=== PATIENT | female | born 1980 | race Hispanic/Latino ===

== ENCOUNTER → 2017-04-09 | Outpatient (CLI) | payer SELFPAY ==
[~2017-04-09] MED LIST: ACHD5005 PO; EST.1TD TD; IBP600T1 PO; METR500T PO
== END ==
LOC: RAD 12:28
PROVIDERS: ATTEND Nurse Practitioner Family
DX: N92.6 Irregular menstruation, unspecified (principal); Z53.29 Procedure and treatment not carried out because of patient's decision for other reasons

== ENCOUNTER 2021-01-12 20:25 | Outpatient (CLI) | payer OTHER ==
[~2021-01-12] VITALS: Ht 151.5 cm; Wt 77.1 kg
[2021-01-12 20:57] VITALS: BP 127/78
[2021-01-12 21:16] VITALS: BP 127/78
[2021-01-12 21:34] LABS: BILIRUBIN,URINE NEGATIVE (NEGATIVE); CLARITY,URINE CLEAR; COLOR,URINE YELLOW; GLUCOSE, URINE (UA) NEGATIVE (NEGATIVE); KETONES,URINE NEGATIVE (NEGATIVE); LEUKOCYTE ESTERASE ,URINE 3+ (NEGATIVE); NITRITE,URINE NEGATIVE (NEGATIVE); PH,URINE 6.5 (5-9); PROTEIN,URINE 1+ (NEGATIVE)
[2021-01-12 21:42] LABS: BACTERIA,URINE LARGE /HPF; SQUAMOUS EPITHELIAL CELL,UR 25-50 /HPF; WBC,URINE 25-50 /HPF
[2021-01-12 22:00] VITALS: BP 127/87
[2021-01-12] MEDS ORDERED: LACTATED RINGERS 1,000 ML IV ONE (22:07)
[2021-01-12] MEDS ORDERED: cefTRIAXone 1,000 MG in WATER (STERILE) FOR INJECTION 10 ML IV ONE (22:15)
[2021-01-12] MEDS ORDERED: LACTATED RINGERS 1,000 ML IV SCH ×2 (22:15→23:45)
[2021-01-13 06:44] VITALS: BP 111/66
[2021-01-14] MEDS ORDERED: OXYC1TAB12 PO (05:05)
[2021-01-14] MEDS ORDERED: DOCU-143 PO (05:05)
[2021-01-14] MEDS ORDERED: IBUP-1780 PO (05:05)
--- NOTE | 2021-01-14 08:05 | Physician Query-Final Dx ---
Clinic Account Progress/Dx Physician Query: Please give diagnosis Please include # weeks gestation Date of Service Jan 12, 2021 at 20:25 VISHNU VENTURA Jan 14, 2021 08:05
== END 2021-01-13 09:05 | disposition home or self-care (01) ==
LOC: LDRP 20:25 → WSo 20:25
PROVIDERS: ATTEND Family Medicine
DX: O62.9 Abnormality of forces of labor, unspecified (principal); Z3A.37 37 weeks gestation of pregnancy
CPT/HCPCS: 81000; 87088

== ENCOUNTER 2021-01-13 21:02 | Inpatient (IN) | payer OTHER ==
[~2021-01-13] VITALS: Ht 154.9 cm; Wt 77.1 kg
[2021-01-13 21:11] VITALS: BP 135/76
[2021-01-13] MEDS ORDERED: LACTATED RINGERS 1,000 ML IV ONE (21:29)
[2021-01-13 21:56] VITALS: BP 135/76
[2021-01-13] MEDS ORDERED: LACTATED RINGERS 1,000 ML IV SCH ×2 (22:00→23:30)
[2021-01-13 22:18] LABS: BILIRUBIN,URINE NEGATIVE (NEGATIVE); CLARITY,URINE CLEAR; COLOR,URINE YELLOW; GLUCOSE, URINE (UA) NEGATIVE (NEGATIVE); KETONES,URINE NEGATIVE (NEGATIVE); LEUKOCYTE ESTERASE ,URINE 1+ (NEGATIVE); NITRITE,URINE NEGATIVE (NEGATIVE); PH,URINE 6.5 (5-9); PROTEIN,URINE TRACE (NEGATIVE)
[2021-01-13 22:24] LABS: BACTERIA,URINE FEW /HPF
[2021-01-13] MEDS ORDERED: fentaNYL INJ 100 MCG/2 ML AMP IVP PRN (23:30)
[2021-01-13 23:40] VITALS: BP 106/65
[2021-01-14] VITALS (13 sets, daily range): BP systolic 87–132; BP diastolic 9–78
[2021-01-14] MEDS ORDERED: CITRIC ACID/SOB CIT (BICITRA) 30 ML UDC ONE (04:33)
[2021-01-14] MEDS ORDERED: FAMOTIDINE 20MG/2ML IV (PEPCID) ONE (04:34)
[2021-01-14] MEDS ORDERED: CATHETER FLUSH 10 ML SYR IV PRN (04:45)
[2021-01-14] MEDS ORDERED: LACTATED RINGERS 1,000 ML IV PRN ×2 (04:45)
[2021-01-14] MEDS ORDERED: METOCLOPRAMIDE INJ 10 MG/2 ML (REGLAN) IV ONE (04:45)
[2021-01-14] MEDS ORDERED: CITRIC ACID/SOB CIT (BICITRA) 30 ML UDC PO ONE (04:45)
--- NOTE | 2021-01-14 04:51 | History & Physical-OB ---
OB - Chief Complaint & HPI Date/Time Date of Admission: Date of Admission: 01/14/21 Time Seen by a Provider: 00:00 Chief Complaint/History OB-Reason for Admission/Chief: Section Hx : 3 Hx Para: 1 Expected Date of Delivery: Jan 27, 2021 Gestational Age in Weeks: 38 Gestational Age in Days: 0 Indication for : other (onset of labor with previous ) Other reason for admission: This is a 40yo at 38wk, pt of Dr. Torres, who presents with contractions. Pt was seen the day prior w/ similar complaints and was noted to be 1.5cm dilated, contractions resolved with IVF and patient was discharged. She reports that she began having contractions again and returned to L&D and was noted to have contractions q5-6 min, cervix was 2cm and was treated with IVF and observed to see if contraction/labor continued. Patient has had 1 previous for failure to progress and was scheduled for consultation with Dr. Hendricks next week for the possibility of vs repeat . Pt began having increase in discomfort and was checked an found to be 4cm dilated. Pt is GBS positive. Allergies and Home Medications Allergies Coded Allergies: No Known Drug Allergies (Unverified , 12/15/10) Home Medications No Active Prescriptions or Reported Meds Patient Home Medication List Home Medication List Reviewed: Yes OB - History Hx of Present Care: Yes Ultrasounds: Normal mid trimester US Obstetrical Complications: None Medical Complications: None Information Maternal Gestational Diabetes: No Hemorrhage: No Obstetrical History Hx : 3 Hx Para: 1 Hx Termination: No Hx Total # of Abortions (Spona: 1 Hx Multiple Gestation: No Hx Ectopic : No Hx Stillbirth: No Hx Complication: No Hx Induced Hypertens: No Hx Maternal Gestational Diabet: No Hx Hemorrhage: No Delivery History Hx Dystocia: No Hx Large For Gestational Age I: No Hx Small for Gestational Age I: No Hx Section: No Hx Vaginal Delivery Post C-Sec: No Hx Blood Disorders: No Patient Past Medical History PSH: x1 Social History/Family History Alcohol Use: Denies Use Recreational Drug Use: No 2nd Hand Smoke Exposure: No Immunizations Tetanus Booster (TDap): Less than 5yrs (11/29/20) Rubella: not immune RPR/VDRL: Negative GBS Status: Positive HBsAG: Negative OB - Admission Exam Physical Exam Vitals: Vital Signs 01/13/21 01/13/21 21:56 23:40 Temp 36.7 Pulse 78 Resp 18 B/P (MAP) 106/65 (79) Pulse Ox 99 O2 Delivery Room Air Cervical Dilatation: 4cm Effacement: 100% Membranes: Intact Labs Laboratory Tests Test 01/13/21 22:10 Range/Units Urine Color YELLOW Urine Clarity CLEAR Urine pH 6.5 5-9 Urine Specific [place] 1.010 L 1.016-1.022 Urine Protein TRACE H NEGATIVE Urine Glucose (UA) NEGATIVE NEGATIVE Urine Ketones NEGATIVE NEGATIVE Urine Nitrite NEGATIVE NEGATIVE Urine Bilirubin NEGATIVE NEGATIVE Urine Urobilinogen 1.0 < = 1.0 MG/DL Urine Leukocyte Esterase 1+ H NEGATIVE Urine RBC (Auto) 1+ H NEGATIVE Urine RBC NONE /HPF Urine WBC 5-10 H /HPF Urine Squamous Epithelial Cells 10-25 H /HPF Urine Renal Epithelial Cells NONE /HPF Urine Crystals NONE /LPF Urine Bacteria FEW H /HPF Urine Casts NONE /LPF Urine Mucus NEGATIVE /LPF Urine Culture Indicated YES OB - Assessment/Plan/Diagnosis Assessment Assessment: active labor, section (previous), group B positive strep Admission Dx see assessment Admission Status: Inpatient Order (span 2 midnights) Reason for Inpatient Admission: repeat Plan Plan: Section (Dr. Goetz consulted) MILVIA FISHMAN DO Jan 14, 2021 04:51
[2021-01-14] MEDS ORDERED: ceFAZolin 2 GM IV Premixed 50 ML ONE (04:52)
[2021-01-14] MEDS ORDERED: metroNIDAZOLE 500MG/100ML IVPB 0 ML ONE (04:52)
[2021-01-14] MEDS ORDERED: ceFAZolin 2 GM IV Premixed 50 ML IV ONE (05:00)
[2021-01-14] MEDS ORDERED: metroNIDAZOLE 500MG/100ML IVPB 100 ML IV ONE ×2 (05:00)
[2021-01-14] MEDS ORDERED: ceFAZolin INJECTION 2,000 MG in WATER (STERILE) FOR INJECTION 10 ML IV ONE (05:00)
[2021-01-14] MEDS ORDERED: OXYC1TAB12 PO (05:05)
[2021-01-14] MEDS ORDERED: IBUP-1780 PO (05:05)
[2021-01-14] MEDS ORDERED: DOCU-143 PO (05:05)
--- NOTE | 2021-01-14 05:08 | Discharge Inst-Surgical ---
Discharge Inst-Surgical Depart Medication/Instructions New, Converted or Re-Newed RX: RX on Chart Consults/Follow Up Patient Instructions: As directed Orders & Referrals Follow Up Appt: RTC 1 week for incision check With Dr. Mitchell Call to make follow up appt. for patient in [address] Rodriguez Wound Care: Remove derick, apply benzoin and steri strips. Activity Per routine post instructions. Please call in RX to patient pharmacy. Diet as tolerated Patient may shower or tub bathe as desired. Continue home meds Diet Discharge Diet: No Restrictions NATHAN MITCHELL MD Jan 14, 2021 05:08
[2021-01-14 05:22] LABS: BASOPHILS % (AUTO) 0 % (0-10); EOSINOPHILS # (AUTO) 0.3 10^3/uL (0.0-0.3); EOSINOPHILS % (AUTO) 4 % (0-10); HEMATOCRIT 34 % (35-52); HEMOGLOBIN 10.8 g/dL (11.5-16.0); LYMPHOCYTES # (AUTO) 1.4 10^3/uL (1.0-4.0); LYMPHOCYTES % (AUTO) 20 % (12-44); MEAN CORPUSCULAR HEMOGLOBIN 26 pg (25-34); MEAN CORPUSCULAR HGB CONC 32 g/dL (32-36); MEAN CORPUSCULAR VOLUME 81 fL (80-99); MONOCYTES # (AUTO) 0.5 10^3/uL (0.0-1.0); MONOCYTES % (AUTO) 7 % (0-12); NEUTROPHILS # (AUTO) 4.7 10^3/uL (1.8-7.8); NEUTROPHILS % (AUTO) 68 % (42-75); PLATELET COUNT 176 10^3/uL (130-400)
[2021-01-14] MEDS ORDERED: fentaNYL INJ 100 MCG/2 ML AMP ONE (05:25)
[2021-01-14] MEDS ORDERED: OXYTOCIN PRE-MIX DRIP 500 ML IV ONE (07:20)
[2021-01-14] MEDS: OXYTOCIN PRE-MIX DRIP 500 ML IV SCH ×2 (07:26→11:40)
[2021-01-14] MEDS ORDERED: MEASLES,MUMPS,RUBELLA 1 EA INJ SC ONE (07:30)
[2021-01-14] MEDS ORDERED: fentaNYL INJ 100 MCG/2 ML AMP IVP PRN (07:30)
[2021-01-14] MEDS ORDERED: TETANUS,DIPTH,PERTUSS P/F (BOOSTRIX) 0.5 ML VIAL IM ONE (07:30)
[2021-01-14] MEDS ORDERED: ONDANSETRON 4 MG/2 ML (SDV) Z0FRAN IVP PRN (07:30)
[2021-01-14] MEDS ORDERED: D5 LR IV SOLUTION 1,000 ML IV SCH (07:30)
--- NOTE | 2021-01-14 08:16 | OPERATIVE REPORT ---
DATE OF SERVICE: 01/14/2021 PREOPERATIVE DIAGNOSIS: A 38-week in labor with previous . POSTOPERATIVE DIAGNOSIS: A 38-week in labor with previous . OPERATIVE PROCEDURE: Repeat low transverse delivery of a viable female with Apgars of 8 and 9 at 1 and 5 minutes respectively, weight of 8 pounds and 13 ounces. Cord blood pH of 7.3 and a time of 05:54. OPERATIVE DESCRIPTION: With the patient in the supine position under satisfactory spinal analgesia, the patient was prepped and draped in the usual fashion for abdominal surgery. Purcell catheter was placed in the urinary bladder. A repeat Pfannenstiel incision was made through the skin with scalpel, the patient's abdomen entered in the usual manner. Bladder retractor placed into position and clean scalpel used to make a 4 cm hysterotomy incision transversely across the lower uterine segment. Kaur forceps were applied to facilitate the delivery of a vigorous viable female infant. Infant had Apgars and stats as noted above. The infant was bulb suctioned on delivery of the head and again on completion of delivery. The umbilical cord was doubly clamped and cut and the passed to the pediatric nurse in attendance for delivery. Cord bloods were obtained. The placenta delivered spontaneously Siddiqui. It was normal with a 3-vessel cord. The uterus was exteriorized and interior wiped clean with a wet laparotomy sponge. Uterine incision closed with a running locked suture of 2-0 Vicryl. Hemostasis was complete. The uterus was returned to abdominal cavity. All blood clot and debris removed from the abdominal cavity. With sponge and needle counts correct, hemostasis assured. Anterior parietal peritoneum was closed with running suture of 2-0 Vicryl. Rectus muscles were closed with that suture as well. The rectus fascia was closed with 2-0 Vicryl, subcutaneous tissue was closed with 2-0 Vicryl and the skin was stapled. Sponge and needle counts were correct on completion of the procedure. Blood loss was around 350 mL. The patient tolerated the procedure well and remained in the LDR for recovery. The baby had remained at bedside with mom. Job ID: [id number] DocumentID: [id number] Dictated Date: 01/14/2021 06:17:13 Relocation Director Date: 01/14/2021 08:15:22 Dictated By: NATHAN MONTES MD
[2021-01-14] MEDS ORDERED: DOCUSATE SODIUM 100 MG (COLACE) CAP PO SCH (09:00)
[2021-01-14] MEDS: DOCUSATE SODIUM 100 MG (COLACE) CAP PO SCH ×2 (09:00→19:55)
[2021-01-14] MEDS: oxyCODONE/APAP 10/325MG (PERCOCET 10) TABLET PO PRN ×2 (10:45→15:40)
[2021-01-14] MEDS: KETOROLAC 30 MG/ML VIAL IVP SCH ×2 (14:45→19:55)
[2021-01-15] MEDS: KETOROLAC 30 MG/ML VIAL IVP SCH (02:23)
[2021-01-15] MEDS: oxyCODONE/APAP 10/325MG (PERCOCET 10) TABLET PO PRN (02:24)
[2021-01-15 04:45] VITALS: BP 105/56
--- NOTE | 2021-01-15 08:23 | Progress Note ---
Standard Progress Note Progress Notes/Assess & Plan Date Seen by a Provider: Jan 15, 2021 Time Seen by a Provider: 08:00 Progress/Assessment & Plan This patient is without complaint. She is ambulating, voiding, tolerating oral intake well and has good pain control. Patient denies headache, denies shortness of breath, denies nausea vomiting, and denies chest pain. Vital Signs Date Time Temp Pulse Resp B/P (MAP) Pulse Ox O2 Delivery O2 Flow Rate FiO2 01/15/21 04:45 36.8 80 18 105/56 (72) 94 Room Air 01/14/21 23:54 Room Air 01/14/21 23:50 36.4 76 18 107/59 (75) 94 Room Air 01/14/21 19:55 36.4 77 18 98/55 (69) 93 Room Air 01/14/21 14:42 37.0 67 18 116/55 (75) 95 Room Air I & O 01/15/21 07:00 Intake Total 4700 ml Output Total 1500 ml Balance 3200 ml Vital signs are stable. Patient is afebrile. Fundus is firm below the umbilicus and nontender. The surgical incision is clean dry and intact Extremities show no clubbing or cyanosis. There is no Homans' sign. Assessment and plan Postoperative day #1 status post repeat delivery doing well. Plan is for routine convalescent care today and consider discharge home tomorrow NATHAN MONTES MD Jan 15, 2021 08:23
[2021-01-15] MEDS ORDERED: IBUPROFEN 800 MG (MOTRIN) TAB PO ONE (08:42)
[2021-01-15 09:24] VITALS: BP 108/63
[2021-01-15] MEDS: IBUPROFEN 800 MG (MOTRIN) TAB PO SCH ×3 (09:28→21:10)
[2021-01-15] MEDS: DOCUSATE SODIUM 100 MG (COLACE) CAP PO SCH ×2 (09:28→21:10)
[2021-01-15 15:10] VITALS: BP 107/58
[2021-01-15 21:00] VITALS: BP 115/66
[2021-01-16] MEDS: IBUPROFEN 800 MG (MOTRIN) TAB PO SCH ×3 (02:21→14:54)
[2021-01-16 02:41] VITALS: BP 111/62
--- NOTE | 2021-01-16 07:49 | Progress Note ---
Standard Progress Note Progress Notes/Assess & Plan Date Seen by a Provider: Jan 16, 2021 Time Seen by a Provider: 07:48 Progress/Assessment & Plan This patient is without complaint. She is ambulating, voiding, tolerating oral intake well and has good pain control. Patient denies headache, denies shortness of breath, denies nausea vomiting, and denies chest pain. Vital Signs Date Time Temp Pulse Resp B/P (MAP) Pulse Ox O2 Delivery O2 Flow Rate FiO2 01/15/21 04:45 36.8 80 18 105/56 (72) 94 Room Air 01/14/21 23:54 Room Air 01/14/21 23:50 36.4 76 18 107/59 (75) 94 Room Air 01/14/21 19:55 36.4 77 18 98/55 (69) 93 Room Air 01/14/21 14:42 37.0 67 18 116/55 (75) 95 Room Air I & O 01/15/21 07:00 Intake Total 4700 ml Output Total 1500 ml Balance 3200 ml Vital signs are stable. Patient is afebrile. Fundus is firm below the umbilicus and nontender. The surgical incision is clean dry and intact Extremities show no clubbing or cyanosis. There is no Homans' sign. Assessment and plan Postoperative day #1 status post repeat delivery doing well. Plan is for routine convalescent care today and consider discharge home tomorrow January 16, 2021 This patient is without complaint. She is ambulating, voiding, tolerating oral intake well and has good pain control. Patient is requesting discharge home. Vital Signs Date Time Temp Pulse Resp B/P (MAP) Pulse Ox O2 Delivery O2 Flow Rate FiO2 01/16/21 02:41 36.7 71 18 111/62 (78) 94 Room Air 01/15/21 21:00 36.7 79 18 115/66 (82) 94 Room Air 01/15/21 15:10 36.5 88 18 107/58 (74) 95 Room Air 01/15/21 09:24 36.8 70 18 108/63 (78) 95 Room Air Vital signs are stable. Patient is afebrile. Fundus is firm below the umbilicus and nontender. The surgical incision is clean dry and intact. Extremities show no clubbing or cyanosis. There is no Homans' sign. Assessment and plan Postoperative day #2 status post repeat delivery doing well. Plan is for discharge home with follow-up in clinic Final Diagnosis 38-week repeat delivery NATHAN MONTES MD Jan 16, 2021 07:49
[2021-01-16 08:20] VITALS: BP 111/69
[2021-01-16] MEDS: DOCUSATE SODIUM 100 MG (COLACE) CAP PO SCH (08:31)
[2021-01-16] MEDS: oxyCODONE/APAP 10/325MG (PERCOCET 10) TABLET PO PRN (14:55)
[2021-01-19] MEDS ORDERED: IBUPROFEN 800 MG (MOTRIN) TAB PO SCH (12:00)
== END 2021-01-16 15:25 | disposition home or self-care (01) | DRG 788 ==
LOC: WSo 21:02 → LDRP 21:04 → WSo 01-14 04:38 → LDRP 01-14 04:39
PROVIDERS: ADMIT Obstetrics & Gynecology; ATTEND Obstetrics & Gynecology
PROC: 10D00Z1 Extraction of Products of Conception, Low, Open Approach (ICD-10-PCS; principal; 2021-01-14 05:35)
DX: O34.211 Maternal care for low transverse scar from previous cesarean delivery (principal); O99.824 Streptococcus B carrier state complicating childbirth; Z3A.38 38 weeks gestation of pregnancy; Z37.0 Single live birth; Z23 Encounter for immunization
CPT/HCPCS: 36415; 81000; 85025; 85027; 86850; 86900; 86901; 87088; 90707; 94664; 99212

== ENCOUNTER → 2023-04-28 | Outpatient (CLI) | payer SELFPAY ==
[~2023-04-28] MED LIST changes: +DOCU-143 PO; +DOCU100C37 PO; +IBUP-1780 PO; +IBUP-844 PO; +OXYC1TAB12 PO
== END | disposition home or self-care (01) ==
LOC: PREOP 11:06
PROVIDERS: ATTEND Obstetrics & Gynecology
DX: Z01.818 Encounter for other preprocedural examination (principal)

== ENCOUNTER 2023-04-29 11:18 | Inpatient (IN) | payer OTHER ==
[~2023-04-29] VITALS: Ht 152.4 cm; Wt 71.8 kg
[2023-04-29] VITALS (9 sets, daily range): BP systolic 97–117; BP diastolic 60–76
[~2023-04-29 11:18] MED LIST changes: -DOCU100C37 PO; -IBUP-844 PO
[2023-04-29] MEDS: LACTATED RINGERS 1,000 ML 1,000 ML IV PRN ×3 (11:40→12:50)
[2023-04-29] MEDS ORDERED: NS (IVPB) 50 ML 50 ML ONE (11:46)
[2023-04-29] MEDS ORDERED: METOCLOPRAMIDE INJ 10 MG/2 ML ONE (11:46)
[2023-04-29] MEDS ORDERED: LACTATED RINGERS 1,000 ML 2,000 ML IV ONE (11:46)
[2023-04-29] MEDS ORDERED: FAMOTIDINE INJ 20MG/2ML VIAL ONE (11:46)
[2023-04-29] MEDS ORDERED: CITRIC ACID/SODIUM CITRATE ORAL SOLN 30 ML ONE (11:46)
[2023-04-29] MEDS ORDERED: ceFAZolin INJECTION 2,000 MG ONE (11:46)
[2023-04-29 11:56] LABS: BASOPHILS % (AUTO) 0 % (0-10); EOSINOPHILS # (AUTO) 0.1 10^3/uL (0.0-0.3); EOSINOPHILS % (AUTO) 1 % (0-10); HEMATOCRIT 39 % (35-52); HEMOGLOBIN 12.4 g/dL (11.5-16.0); LYMPHOCYTES # (AUTO) 0.7 10^3/uL (1.0-4.0); LYMPHOCYTES % (AUTO) 11 % (12-44); MEAN CORPUSCULAR HEMOGLOBIN 28 pg (25-34); MEAN CORPUSCULAR HGB CONC 32 g/dL (32-36); MEAN CORPUSCULAR VOLUME 86 fL (80-99); MEAN PLATELET VOLUME 12.8 fL (9.0-12.2); MONOCYTES # (AUTO) 0.3 10^3/uL (0.0-1.0); MONOCYTES % (AUTO) 5 % (0-12); NEUTROPHILS # (AUTO) 5.7 10^3/uL (1.8-7.8); NEUTROPHILS % (AUTO) 83 % (42-75); PLATELET COUNT 175 10^3/uL (130-400); WHITE BLOOD COUNT 6.8 10^3/uL (4.3-11.0)
[2023-04-29] MEDS ORDERED: METOCLOPRAMIDE INJ 10 MG/2 ML IV ONE (12:00)
[2023-04-29] MEDS ORDERED: FAMOTIDINE INJ 20MG/2ML VIAL IV ONE (12:00)
[2023-04-29] MEDS ORDERED: CITRIC ACID/SODIUM CITRATE ORAL SOLN 30 ML PO ONE (12:00)
[2023-04-29] MEDS ORDERED: fentaNYL INJECTION 100 MCG/2 ML VIAL ONE (12:15)
[2023-04-29] MEDS ORDERED: BUPIVACAINE 0.5% 30 ML VIAL ONE (12:15)
[2023-04-29] MEDS ORDERED: OXYTOCIN DRIP PRE-MIX 1,000 ML IV ONE (12:15)
--- NOTE | 2023-04-29 12:29 | History & Physical-OB ---
OB - Chief Complaint & HPI Date/Time Date of Admission: Date of Admission: Apr 29, 2023 at 11:50 Date seen by a Provider: Apr 29, 2023 Time Seen by a Provider: 12:20 Chief Complaint/History OB-Reason for Admission/Chief: Section Hx : 4 Hx Para: 2 Expected Date of Delivery: May 11, 2023 Gestational Age in Weeks: 38 Gestational Age in Days: 2 Indication for : desires repeat Admission Nurse Assessment Rev: Yes Allergies and Home Medications Allergies Coded Allergies: No Known Drug Allergies (Unverified , 12/15/10) Patient Home Medication List Home Medication List Reviewed: Yes Docusate Sodium (Colace) 100 Mg Capsule, 100 MG PO BID Prescribed by: NATHAN FLOREZ on 01/14/21 0505 Ibuprofen (Ibuprofen) 800 Mg Tablet, 800 MG PO Q6H PRN for PAIN Prescribed by: NATHAN FLOREZ on 01/14/21 0505 Oxycodone HCl/Acetaminophen (Percocet 10-325 mg Tablet) 1 Each Tablet, 1 TAB PO Q8H PRN for PAIN-MODERATE Prescribed by: NATHAN FLOREZ on 01/14/21 0506 OB - History Hx of Present Care: Yes Ultrasounds: Normal mid trimester US Obstetrical Complications: Gestational Diabetes Medical Complications: None Obstetrical History Hx Termination: No Hx Multiple Gestation: No Hx Stillbirth: No Hx Complication: No Hx Induced Hypertens: No Hx Maternal Gestational Diabet: No Delivery History Hx Dystocia: No Hx Large For Gestational Age I: No Hx Small for Gestational Age I: No Hx Section: No Hx Vaginal Delivery Post C-Sec: No Hx Blood Disorders: No Patient Past Medical History PSH: x1 Social History/Family History 2nd Hand Smoke Exposure: No Immunizations Hepatitis A: No Hepatitis B: No Tetanus Booster (TDap): Less than 5yrs OB - Admission Exam Physical Exam HEENT: NCAT Heart: Rhythm Normal Lungs: Clear Abdomen: Gravid Extremities: Normal Reflexes: Normal Cervical Dilatation: 6cm Effacement: 75% Station: -1 Membranes: Intact Heart Rate: 130's Accelerations: Accelerations Present Decelerations: No Decelerations Short Term Variability: Present Taxi Cab Driver Variability: Average (6-25) Contractions on Admission: >10 Minutes Apart Intensity: Mild Labs Laboratory Tests Test 04/29/23 11:48 Range/Units White Blood Count 6.8 4.3-11.0 10^3/uL Red Blood Count 4.50 3.80-5.11 10^6/uL Hemoglobin 12.4 11.5-16.0 g/dL Hematocrit 39 35-52 % Mean Corpuscular Volume 86 80-99 fL Mean Corpuscular Hemoglobin 28 25-34 pg Mean Corpuscular Hemoglobin Concent 32 32-36 g/dL Red Cell Distribution Width 15.7 H 10.0-14.5 % Platelet Count 175 130-400 10^3/uL Mean Platelet Volume 12.8 H 9.0-12.2 fL Immature Granulocyte % (Auto) 0 % Neutrophils (%) (Auto) 83 H 42-75 % Lymphocytes (%) (Auto) 11 L 12-44 % Monocytes (%) (Auto) 5 0-12 % Eosinophils (%) (Auto) 1 0-10 % Basophils (%) (Auto) 0 0-10 % Neutrophils # (Auto) 5.7 1.8-7.8 10^3/uL Lymphocytes # (Auto) 0.7 L 1.0-4.0 10^3/uL Monocytes # (Auto) 0.3 0.0-1.0 10^3/uL Eosinophils # (Auto) 0.1 0.0-0.3 10^3/uL Basophils # (Auto) 0.0 0.0-0.1 10^3/uL Immature Granulocyte # (Auto) 0.0 0.0-0.1 10^3/uL Glucose Level 79 70-105 MG/DL OB - Assessment/Plan/Diagnosis Assessment Assessment: section Admission Dx 42 yo @ 38.2 Previous x 2 Active labor GDM Admission Status: Inpatient Order (span 2 midnights) Reason for Inpatient Admission: RLTCS Plan Plan: Section CHARLES MATTHEW DO Apr 29, 2023 12:29
--- NOTE | 2023-04-29 12:31 | Discharge Inst-Women's Service ---
Discharge Inst-Women's Serv Depart Medication/Instructions New, Converted or Re-Newed RX: Transmitted to Pharmacy Final Diagnosis POD 2 RLTCS Problems Reviewed?: Yes Consults/Follow Up Additional Follow Up: Yes Orders/Referrals Dr. Rosa in 7-[address] Martin in 6 weeks Activity Activity: Activity as Tolerated Driving Instructions: No Driving for 1 Week NO SMOKING: NO SMOKING Nothing Inside Vagina: No Douching, No [place], No Tampons Diet Discharge Diet: No Restrictions Symptoms to Report to : Bleeding Excessive, Pain Increased, Fever Over 101 Degrees F, Vaginal Bleeding Increase, Questions/Concerns For Any Problems or Questions: Contact Your Physician Skin/Wound Care Infection Signs and Symptoms: Increased Redness, Foul Odor of Wound, Increased Drainage, Skin Itchy or Has a Rash, Increased Swelling, Temperature Above 101 F Operative Area Clean and Dry: Keep Incision Clean/Dry Stitches/Gaby/Dermabond: Dermabond, Care of Stitches Bathing Instructions: CHARLES Us DO Apr 29, 2023 12:31
[2023-04-29] MEDS ORDERED: IBUP-844 PO (12:35)
[2023-04-29] MEDS ORDERED: DOCU100C37 PO (12:35)
[2023-04-29] MEDS ORDERED: ACHD5005 PO (12:35)
[2023-04-29] MEDS ORDERED: MEASLES, MUMPS, RUBELLA VACCINE (MMR) SC SCH (12:45)
[2023-04-29] MEDS ORDERED: NALOXONE 0.4 MG/ML 1 ML VIAL IV PRN (12:45)
[2023-04-29] MEDS ORDERED: ONDANSETRON INJECTION 4 MG/2 ML (SDV) IVP PRN (12:45)
[2023-04-29] MEDS ORDERED: Tetanus/Diphtheria/Pertussis (Acell) ADULT Vaccine 0.5 ML IM SCH (12:45)
[2023-04-29] MEDS ORDERED: OXYTOCIN DRIP PRE-MIX 500 ML IV SCH (12:45)
[2023-04-29] MEDS ORDERED: PHENYLEPHRINE 100 MCG/ML 10 ML (ANESTHESIA) SYR ONE (13:07)
[2023-04-29] MEDS: CATHETER FLUSH 10 ML SYR IV SCH ×2 (14:00→21:02)
[2023-04-29] MEDS: KETOROLAC INJ 30 MG/ML VIAL IV SCH ×2 (14:26→21:02)
[2023-04-29] MEDS: HYDROcodone/ACETAMINOPHEN 5 MG/325 MG TABLET PO PRN (18:31)
[2023-04-29] MEDS: DOCUSATE SODIUM 100 MG CAPSULE PO SCH (21:02)
--- NOTE | 2023-04-29 23:45 | OPERATIVE REPORT ---
PREOPERATIVE DIAGNOSES: 1. A 42-year-old at 38 weeks and 2 days gestation. 2. Previous section x2. 3. Active labor. POSTOPERATIVE DIAGNOSES: 1. A 42-year-old at 38 weeks and 2 days gestation. 2. Previous section x2. 3. Active labor. 4. Gestational diabetes. SURGEON: Gilberto Rosa DO SPACER TYPE BAR AND SEGMENT: Beatrice Harrison, who was necessary for manipulation and retraction throughout the procedure. PROCEDURE: Repeat low transverse section. ANESTHESIA: Spinal. ESTIMATED BLOOD LOSS: 500 mL. URINE OUTPUT: 75 mL clear at the end of the procedure. FLUIDS: 1800 mL lactated Ringer's solution. FINDINGS: Live male infant, weight pending, Apgars of 9 and 9. Grossly normal appearing uterus, bilateral fallopian tubes and ovaries. SPECIMEN SENT: Placenta. INDICATIONS FOR PROCEDURE: This 42-year-old female is a patient who presented to labor and delivery unit in active labor, 6 cm dilated. Due to this, she was urgently processed and prepared for a repeat . She had been scheduled for 39 weeks, for repeat . Risks of the procedure were discussed with the patient briefly preoperatively. She was agreeable to proceed. Consent was obtained, the patient was taken to the operating room. OPERATIVE REPORT IN DETAIL: Once in the operating room, spinal analgesia was administered and found to be adequate. She was placed in supine position with leftward tilt, prepped and draped in normal sterile fashion. A timeout was performed. Anesthesia was tested. I make a Pfannenstiel skin incision through the previously existing scar using knife and carried down to the underlying fascia using Bovie cautery. The fascial incision extended laterally using Bovie cautery. The superior aspect of fascial incision was then grasped with Michel clamps, tented up and dissected off the underlying rectus muscles. The inferior aspect of the fascial incision was then grasped with Michel clamps, tented upward and dissected off the underlying rectus muscles. Rectus muscles were dissected down the midline sharply, exposing the peritoneum, which I entered bluntly and extended using blunt traction. Baudilio ring retractor was placed in the peritoneal incision, which offers excellent lateral sidewall retraction. I identified lower uterine segment was found to be thinned out. I make a low transverse incision to the vesicouterine peritoneum and bluntly dissected off the lower uterine segment, creating a bladder flap and then proceeded with my myotomy until membranes were visualized, at which point I extended uterine incision laterally and superiorly using bandage scissors. Amniotomy was then performed using Allis clamp. Clear fluid was noted. The infant was found in the vertex presentation. With gentle fundal pressure, the infant's head was elevated up to the incision and was delivered through the incision. The nares and oropharynx were bulb suctioned. Anterior and posterior shoulders were delivered. was brought to the operative field, where cords were clamped and cut and was handed off to waiting nurses in attendance. Cord blood was collected. Three-vessel cord with intact placenta was delivered spontaneously thereafter. IV Pitocin was initiated to facilitate uterine contraction. Uterine fundus confirmed by manual massage. The uterus was then exteriorized and cleared of endometrial clots and debris. I then proceeded with closing the uterine incision using 0 Vicryl suture in a running locked fashion. Second layer of imbricating 0 Monocryl was placed. Excellent hemostasis was noted after doing this. I then placed the uterus back in the pelvis and copiously irrigated the pelvis using normal saline. Once again, there was no active bleeding noted from any of my dissection planes. I placed Interceed antiadhesive over my low transverse incision. I then proceeded with removing the Baudilio ring retractor and then proceeded with closing the peritoneum using 3-0 Vicryl suture in a running fashion. Rectus muscle was reapproximated using 3-0 Vicryl suture interrupted fashion. Fascia was reapproximated using 0 Vicryl suture in a running fashion. The subcutaneous tissue was reapproximated using 3-0 plain interrupted subcutaneous stitch and the skin was reapproximated using 4-0 Monocryl running subcuticular. Dermabond was applied to incision and sterile dressing with adhesive white tape. Job ID: [id number] DocumentID: [id number] Dictated Date: 04/29/2023 14:19:22 Interlocking Machine Operator Date: 04/29/2023 23:43:00 Dictated By: DO MICHELE PHILIPPE
[2023-04-30 03:41] VITALS: BP 101/61
[2023-04-30] MEDS: HYDROcodone/ACETAMINOPHEN 5 MG/325 MG TABLET PO PRN ×3 (03:41→16:25)
[2023-04-30] MEDS: CATHETER FLUSH 10 ML SYR IV SCH ×2 (03:41→10:03)
[2023-04-30] MEDS: KETOROLAC INJ 30 MG/ML VIAL IV SCH ×2 (03:41→09:59)
[2023-04-30 05:49] LABS: BASOPHILS % (AUTO) 1 % (0-10); EOSINOPHILS # (AUTO) 0.2 10^3/uL (0.0-0.3); EOSINOPHILS % (AUTO) 4 % (0-10); HEMATOCRIT 33 % (35-52); HEMOGLOBIN 10.5 g/dL (11.5-16.0); LYMPHOCYTES # (AUTO) 0.9 10^3/uL (1.0-4.0); LYMPHOCYTES % (AUTO) 15 % (12-44); MEAN CORPUSCULAR HEMOGLOBIN 27 pg (25-34); MEAN CORPUSCULAR HGB CONC 32 g/dL (32-36); MEAN CORPUSCULAR VOLUME 86 fL (80-99); MEAN PLATELET VOLUME 13.1 fL (9.0-12.2); MONOCYTES # (AUTO) 0.5 10^3/uL (0.0-1.0); MONOCYTES % (AUTO) 8 % (0-12); NEUTROPHILS # (AUTO) 4.4 10^3/uL (1.8-7.8); NEUTROPHILS % (AUTO) 73 % (42-75); PLATELET COUNT 143 10^3/uL (130-400); WHITE BLOOD COUNT 6.1 10^3/uL (4.3-11.0)
--- NOTE | 2023-04-30 08:14 | Postpartum Progress Note ---
Post Op Post-operative Day #1 Subjective: Patient is without complaints. Ambulating, voiding after parsons removed. Tolerating a regular diet without nausea or vomiting. Normal lochia. Pain is well controlled with oral pain medications. Passing flatus. Breast feeding. [] Objective: VSSAF Physical Exam: General - Alert and oriented, no apparent distress Breasts are symmetrical with no erythema or engorgement Abdomen - Soft, appropriately tender to palpation, non-distended, fundus firm at umbilicus Incision - clean, dry and intact; no erythema or induration, no drainage Extremities - no edema, negative Rica's bilaterally Assessment: [] post-operative day # 1, status post LTCS. Recovering well, hemodynamically stable Plan: Routine post-operative care. Encourage breast feeding. Encourage ambulation. VTE prophylaxis: SCDs. Ferrous sulfate supplementation. Plan for discharge [] Vitals - Labs Vital Signs - I&O Vital Signs Date Time Temp Pulse Resp B/P (MAP) Pulse Ox O2 Delivery O2 Flow Rate FiO2 04/30/23 03:41 36.8 78 18 101/61 (74) 96 Room Air 04/29/23 23:30 36.6 68 18 106/62 (77) 96 Room Air 04/29/23 21:00 36.5 74 18 110/66 (81) 96 Room Air 04/29/23 15:21 36.0 62 18 115/76 (89) 98 Room Air 04/29/23 14:05 Room Air 04/29/23 14:05 35.9 18 106/71 (83) 99 Room Air 04/29/23 13:50 35.9 18 104/73 (83) 100 Room Air 04/29/23 13:50 Room Air 04/29/23 13:35 35.9 16 103/62 (76) 99 Room Air 04/29/23 13:35 Room Air 04/29/23 13:20 36.2 16 97/60 (72) 97 Room Air 04/29/23 13:20 Room Air 04/29/23 11:47 82 18 117/70 (86) 99 Room Air 04/29/23 11:31 36.8 79 18 98 Room Air I & O 04/30/23 07:00 Intake Total 2850 ml Output Total 1175 ml Balance 1675 ml Labs Laboratory Tests 04/29/23 11:48: White Blood Count 6.8, Red Blood Count 4.50, Hemoglobin 12.4, Hematocrit 39, Mean Corpuscular Volume 86, Mean Corpuscular Hemoglobin 28, Mean Corpuscular Hemoglobin Concent 32, Red Cell Distribution Width 15.7H, Platelet Count 175, Mean Platelet Volume 12.8H, Immature Granulocyte % (Auto) 0, Neutrophils (%) (Auto) 83H, Lymphocytes (%) (Auto) 11L, Monocytes (%) (Auto) 5, Eosinophils (%) (Auto) 1, Basophils (%) (Auto) 0, Neutrophils # (Auto) 5.7, Lymphocytes # (Auto) 0.7L, Monocytes # (Auto) 0.3, Eosinophils # (Auto) 0.1, Basophils # (Auto) 0.0, Immature Granulocyte # (Auto) 0.0, Glucose Level 79 04/30/23 05:18: White Blood Count 6.1, Red Blood Count 3.85, Hemoglobin 10.5L, Hematocrit 33L, Mean Corpuscular Volume 86, Mean Corpuscular Hemoglobin 27, Mean Corpuscular Hemoglobin Concent 32, Red Cell Distribution Width 16.0H, Platelet Count 143, Mean Platelet Volume 13.1H, Immature Granulocyte % (Auto) 0, Neutrophils (%) (Auto) 73, Lymphocytes (%) (Auto) 15, Monocytes (%) (Auto) 8, Eosinophils (%) (Auto) 4, Basophils (%) (Auto) 1, Neutrophils # (Auto) 4.4, Lymphocytes # (Auto) 0.9L, Monocytes # (Auto) 0.5, Eosinophils # (Auto) 0.2, Basophils # (Auto) 0.0, Immature Granulocyte # (Auto) 0.0 BERNIE NUNES DO Apr 30, 2023 08:14
[2023-04-30 09:30] VITALS: BP 112/65
[2023-04-30] MEDS: DOCUSATE SODIUM 100 MG CAPSULE PO SCH ×2 (09:59→22:21)
[2023-04-30] MEDS: FERROUS SULFATE 325 MG (IRON) TABLET PO SCH (09:59)
[2023-04-30 12:30] VITALS: BP 108/65
[2023-04-30] MEDS ORDERED: IBUPROFEN 600 MG TABLET PO SCH (12:45)
[2023-04-30] MEDS: SIMETHICONE 80 MG CHEWABLE TABLET PO SCH ×3 (14:59→22:20)
[2023-04-30] MEDS: IBUPROFEN 600 MG TABLET PO SCH ×2 (16:25→22:21)
[2023-04-30 16:31] VITALS: BP 117/69
[2023-04-30 22:20] VITALS: BP 96/66
[2023-05-01] MEDS: HYDROcodone/ACETAMINOPHEN 5 MG/325 MG TABLET PO PRN ×2 (00:24→12:27)
[2023-05-01 02:30] VITALS: BP 114/79
[2023-05-01] MEDS: IBUPROFEN 600 MG TABLET PO SCH ×2 (06:16→12:28)
--- NOTE | 2023-05-01 06:55 | Postpartum Progress Note ---
Post Op Post-operative Day #2 Subjective: Patient is status post repeat low-transverse section postop day #2. She is ambulating and her room without difficulty. She is breast-feeding. Her pain is well controlled. Her lochia is minimal. And she would like to go home today. Objective: Vital signs stable and afebrile Physical Exam: General - Alert and oriented, no apparent distress Breast symmetrical no erythema or edema or engorgement Abdomen - Soft, appropriately tender to palpation, non-distended, fundus firm at umbilicus Incision - clean, dry and intact; no erythema or induration, no drainage Extremities - no edema, negative Rica's bilaterally Assessment: [] post-operative day # 2, status post Low transverse . Recovering well, hemodynamically stable Plan: Routine post-operative care. Encourage breast feeding. Encourage ambulation. VTE prophylaxis: SCDs. Ferrous sulfate supplementation. Plan for discharge [] Vitals - Labs Vital Signs - I&O Vital Signs Date Time Temp Pulse Resp B/P (MAP) Pulse Ox O2 Delivery O2 Flow Rate FiO2 05/01/23 02:30 36.4 79 18 114/79 (91) 96 Room Air 04/30/23 22:20 36.5 86 18 96/66 (76) 96 Room Air 04/30/23 18:00 73 04/30/23 16:31 36.5 100 18 117/69 (85) 98 Room Air 04/30/23 12:30 36.7 84 18 108/65 (79) 96 Room Air 04/30/23 09:30 37.0 73 18 112/65 (81) 96 Room Air BERNIE NUNES DO May 01, 2023 06:55
--- NOTE | 2023-05-01 06:57 | Discharge Summary ---
Discharge Summary Hospital Course Problems Reviewed?: Yes Hospital Course Date of Admission: Apr 29, 2023 at 11:50 Admission Diagnosis : Family Physician/Provider: Misty Martin MD Date of Discharge: 05/01/23 Discharge Diagnosis: Repeat low-transverse section Hospital Course: Patient was admitted for labor and needed a repeat low-transverse section which she underwent and delivered a liveborn . Her /postoperative course was uneventful her pain was well controlled she was ambulating well and she was discharged on postop day #2 with pain medications and instructions Labs and Pending Lab Test: Home Meds Active Hydrocodone-Acetamin 5-325 mg (Hydrocodone/Acetaminophen) 5 Mg-325 Mg Tablet 1-2 Tab PO Q6H PRN Docusate Sodium 100 Mg Capsule 100 Mg PO BID PRN Ibu (Ibuprofen) 600 Mg Tablet 600 Mg PO Q6H Percocet 10-325 mg Tablet (Oxycodone HCl/Acetaminophen) 1 Each Tablet 1 Tab PO Q8H PRN MDD 3 TABS 7 Days Ibuprofen 800 Mg Tablet 800 Mg PO Q6H PRN Colace (Docusate Sodium) 100 Mg Capsule 100 Mg PO BID Discharge Diet: Regular Diet Symptoms to Report to : Constipation(Persistant), Fever Over 101 Degrees F, Pain/Pressure in Chest, Vaginal Discharge Foul, Shortness of Breath For Any Problems or Questions: Go to Emergency Room Infection Signs and Symptoms: Increased Redness, Foul Odor of Wound, Increased Drainage, Skin Itchy or Has a Rash, Increased Swelling, Temperature Above 101 F Operative Area Clean and Dry: Keep Incision Clean/Dry Stitches/Gaby/Dermabond: Dermabond Discharge Physical Examination Allergies: Coded Allergies: No Known Drug Allergies (Unverified , 12/15/10) Vitals & I&Os Vital Signs Date Time Temp Pulse Resp B/P (MAP) Pulse Ox O2 Delivery O2 Flow Rate FiO2 05/01/23 02:30 36.4 79 18 114/79 (91) 96 Room Air Discharge Summary Date of Admission Apr 29, 2023 at 11:50 Date of Discharge Discharge Date: May 01, 2023 Supervisory-Addendum Brief Verification & Attestation Participated in pt care: history, MDM, physical Personally performed: exam, history, MDM, supervision of care Care discussed with: other Procedures: n/a Results interpretation: Verified all documentation I personally saw and examined this patient during her . BERNIE NUNES DO May 01, 2023 06:56
[2023-05-01 08:45] VITALS: BP 110/62
[2023-05-01] MEDS: DOCUSATE SODIUM 100 MG CAPSULE PO SCH (08:58)
[2023-05-01] MEDS: SIMETHICONE 80 MG CHEWABLE TABLET PO SCH (08:58)
[2023-05-01] MEDS: FERROUS SULFATE 325 MG (IRON) TABLET PO SCH (08:58)
[2023-05-01 14:15] VITALS: BP 110/62
== END 2023-05-01 14:15 | disposition home or self-care (01) | DRG 788 ==
LOC: LDRP 11:18 → WSo 11:18 → LDRP 11:50
PROVIDERS: ADMIT Obstetrics & Gynecology; ATTEND Obstetrics & Gynecology
PROC: 10D00Z1 Extraction of Products of Conception, Low, Open Approach (ICD-10-PCS; principal; 2023-04-29 12:25)
DX: O34.211 Maternal care for low transverse scar from previous cesarean delivery (principal); O24.429 Gestational diabetes mellitus in childbirth, unspecified control; Z3A.38 38 weeks gestation of pregnancy; Z37.0 Single live birth
CPT/HCPCS: 36415; 82947; 85025; 86850; 86900; 86901; 94664